=== PATIENT | male | born 1930 | race Caucasian/White ===

== ENCOUNTER 2020-02-14 14:18 | Inpatient (IN) | payer OTHER, MEDICARE ==
[2020-02-14] MEDS ORDERED: Docusate Sodium 100 MG Cap PO PRN (16:36)
[2020-02-14] MEDS ORDERED: Ondansetron 4 MG Tab.DIS PO PRN (16:38)
[2020-02-14] MEDS: Finasteride 5 MG Tab PO SCH (19:51)
[2020-02-14] MEDS: Brimonidine 0.2% Ophth Soln 5 ML Bottle EYEBOTH SCH (19:51)
[2020-02-14] MEDS: Acetaminophen 325 MG Tab PO PRN (19:51)
[2020-02-14] MEDS: Latanoprost 0.005% Ophth Soln 2.5 ML Bottle EYEBOTH SCH (19:52)
[2020-02-15] MEDS: Albuterol/Ipratropium 3.0-0.5 MG/3 ML Neb Soln INH SCH ×4 (00:09→23:10)
[2020-02-15] MEDS: Colchicine 0.6 MG Tab PO SCH (08:16)
[2020-02-15] MEDS: Digoxin 250 MCG Tab PO SCH (08:16)
[2020-02-15] MEDS: Tamsulosin 0.4 MG Cap.ER PO SCH (08:16)
[2020-02-15] MEDS: Amiodarone 200 MG Tab PO SCH (08:16)
[2020-02-15] MEDS: Metoprolol Succinate 25 MG Tab.ER PO SCH (08:16)
[2020-02-15] MEDS: Furosemide 20 MG Tab PO SCH (08:16)
[2020-02-15] MEDS: Brimonidine 0.2% Ophth Soln 5 ML Bottle EYEBOTH SCH ×3 (08:17→20:15)
[2020-02-15] MEDS: Polyethylene Glycol 3350 Powder 17 GM Packet PO SCH (08:18)
--- NOTE | 2020-02-15 10:20 | HP ---
CHIEF COMPLAINT: 1. Weakness. 2. Deconditioning. HISTORY OF PRESENT ILLNESS: The patient is a pleasant 89-year-old male who is admitted to the swing bed unit at [facility] for weakness and deconditioning. [facility] and his PCP is Dr. Nikky Mondragon at the [facility] in [place], [place]. INTERVAL HISTORY: The patient was seen in an emergency room on 12/13/2019, at the [facility] in [place] for swelling of the right wrist. The patient was diagnosed with septic arthritis of the right wrist and hand, and therefore underwent an I and D by Orthopedics on 12/14/2019. The patient was started on IV antibiotics and discharged to a transitional care unit on 12/18/2019. The patient seemed to do well at the transitional care unit. The patient did not have any issues with the right wrist/hand. On 01/12/2020, the patient again presented to the emergency room for shortness of breath, fevers, and chills. The patient was found to be hypotensive and therefore was started on Levophed. The patient did require IV fluids and IV antibiotics and was admitted to the intensive care unit. The patient did remain hemodynamically stable. The patient had developed an acute onset of shortness of breath and altered mental status. The patient was placed on IV Levaquin and IV Zosyn. The patient had started on a BiPAP mask and was able to be transitioned to a venturi mask. Again, the patient was admitted to the ICU for management of septic shock requiring vasopressor support. The patient was able to be discharged from the hospital again on 01/27/2020 to a local fdc. The patient had recovered well while in the fdc, but remained significantly deconditioned. The decision was made by family to have the patient brought back to [place] for rehab in a local fdc in [place], [place]. However, the fdc has required the patient to be quarantined for 14 days prior to the admission. PAST MEDICAL HISTORY: 1. Gout. 2. Septic arthritis of the right wrist/hand. 3. Essential hypertension. 4. BPH. 5. Muscle wasting and atrophy. 6. Abnormality of gait and mobility. 7. Lack of coordination. 8. Dysphagia, oropharyngeal phase. SURGICAL HISTORY: I and D of right hand/wrist, 12/14/2019. FAMILY HISTORY: Noncontributory. SOCIAL HISTORY: The patient does not smoke cigarettes. The patient is currently . The patient is retired. The patient does not use alcohol. MEDICATIONS: 1. Acetaminophen 650 mg 1 tablet p.o. every 4 hours as needed. 2. Albuterol/ipratropium via inhalation every 8 hours. 3. Amiodarone 200 mg 1 tablet p.o. daily. 4. Alphagan 1 drop to both eyes 3 times daily. 5. Colchicine 0.6 mg 1 tablet p.o. daily. 6. Digoxin 250 mcg 1 tablet p.o. daily. 7. Docusate sodium 100 mg p.o. daily as needed. 8. Finasteride 5 mg 1 tablet p.o. daily at bedtime. 9. Furosemide 20 mg 1 tablet p.o. daily. 10.Latanoprost 1 drop to both eyes at bedtime. 11.Metoprolol 25 mg 1 tablet p.o. daily. 12.Zofran 4 mg ODT every 6 hours as needed. 13.MiraLax 17 g p.o. daily. 14.Tamsulosin 0.4 mg 1 tablet p.o. daily. LABORATORY STUDIES: None. IMAGING STUDIES: None. IMMUNIZATION STATUS: Up to date. REVIEW OF SYSTEMS: Constitutional: Negative. Respiratory: Negative. Cardiovascular: Negative. Abdomen: Negative. Skin: Negative. Neurological: Negative. PHYSICAL EXAMINATION: General: The patient is severely hard of hearing. The patient is legally blind, however, he can see shapes and objects. The patient is cooperative. The patient does not appear to be in any acute distress. Skin: Warm, dry, and intact. Respiratory: No acute respiratory distress. Lungs: Clear to auscultation. Cardiovascular: Regular rate and rhythm. No murmur (the patient does have a history of atrial fibrillation). GI: Abdomen is soft, nontender. Bowel sounds are active x4. ASSESSMENT: 1. Weakness. 2. Deconditioning. 3. Septic arthritis of the right wrist/hand. 4. Essential hypertension. 5. Gout. 6. Benign prostatic hypertrophy. 7. Dysphagia. PLAN: The patient will be admitted to the swing bed unit at [facility] for a 14-day quarantine prior to being discharged to [facility] in [place], [place]. In speaking with the via telephone and the patient, the patient wishes to remain a full code. The patient would be transferred to a higher level of care should the need arise. We will have the patient be seen by Physical and Occupational Therapies respectively. The patient's diet will be a mechanical soft with thickened liquids and close supervision during feedings. Continue the same home medications without any changes. Dr. Freda Nguyen will assume care of this patient tomorrow. TB: 02/15/2020 09:12:57 MODL: 02/15/2020 10:14:34 /[id number] MTDD
[2020-02-15] MEDS: Acetaminophen 325 MG Tab PO PRN (20:15)
[2020-02-15] MEDS: Finasteride 5 MG Tab PO SCH (20:15)
[2020-02-15] MEDS: Latanoprost 0.005% Ophth Soln 2.5 ML Bottle EYEBOTH SCH (20:15)
[2020-02-16] MEDS: Albuterol/Ipratropium 3.0-0.5 MG/3 ML Neb Soln INH SCH (07:41)
[2020-02-16] MEDS: Tamsulosin 0.4 MG Cap.ER PO SCH (08:11)
[2020-02-16] MEDS: Colchicine 0.6 MG Tab PO SCH (08:11)
[2020-02-16] MEDS: Amiodarone 200 MG Tab PO SCH (08:11)
[2020-02-16] MEDS: Digoxin 250 MCG Tab PO SCH (08:11)
[2020-02-16] MEDS: Furosemide 20 MG Tab PO SCH (08:11)
[2020-02-16] MEDS: Metoprolol Succinate 25 MG Tab.ER PO SCH (08:11)
[2020-02-16] MEDS: Brimonidine 0.2% Ophth Soln 5 ML Bottle EYEBOTH SCH ×3 (08:13→19:59)
[2020-02-16] MEDS: Polyethylene Glycol 3350 Powder 17 GM Packet PO SCH (08:14)
[2020-02-16] MEDS ORDERED: Albuterol/Ipratropium 3.0-0.5 MG/3 ML Neb Soln INH PRN (10:41)
--- NOTE | 2020-02-16 11:48 | PN ---
Progress Note for LEONARDO WHITFIELD Date: 02/16/2020 Room #: VM.202 SUBJECTIVE: An 89-year-old seen today on swing bed rounds. The patient was admitted over the weekend from [facility] after a prolonged stay there for first septic arthritis of the wrist, then later an admit for Pseudomonas extended-spectrum beta-lactamases pneumonia and bacteremia and then also Rowan, completing courses of micafungin and meropenem. He was not intubated, but required pressors and BiPAP. The patient has a complicated medical history of thrombocytopenia and splenectomy. His last platelet count down there was 56. He received multiple blood transfusions in the hospital. He also has gout and is on the colchicine and does not have any new joint pains today. He states his breathing has been good. He is not coughing. He does not carry a history of chronic obstructive pulmonary disease, but is on nebulizers scheduled 3 times a day. The patient is also on Lasix for diastolic heart failure, Flomax for BPH. The patient went into atrial fibrillation with rapid ventricular response during his ICU stay, but seems to be back in a sinus rhythm now. He is not on anticoagulation due to his history of bleeding but is on metoprolol, digoxin, and amiodarone for rate control. He otherwise states things are going okay. Nurse reported that he somehow got himself into a chair or maybe there was some assistance in the room because he is very weak, needing 2 to 3 people to assist him as he is quite tall. He is also reported to have mild dementia, but admitting provider over the weekend did feel that he was quite sharp. He also spoke with his . He is also little hard to hearing. He is on a mechanical soft and thickened liquid diet. 's name is Jacqui. OBJECTIVE: Vital Signs: His weight is 72.3 kg, pulse 90, blood pressure 110/73, temperature 97.6, respiratory rate 18, O2 of 97% on room air. General: He is in no acute distress. Heart: Regular rate and rhythm. S1 and S2 without murmur. Lungs: Lung sounds are clear to auscultation bilaterally without crackles or wheezes. Extremities: Warm and dry. No edema. Mental Status: He is alert. He is orientated. He is aware he is in [place]. ASSESSMENT AND PLAN: 1. Weakness and deconditioning related to a prolonged hospital stay for healthcare-associated pneumonia. He has completed antibiotics. At this point, I discussed with Respiratory Therapy. We will change his nebulizers to as needed. 2. Septic arthritis of the right hand and wrist. This has completely resolved. 3. Gout. We will continue his home medications. 4. Essential hypertension. 5. BPH. 6. Dysphagia. We will get a Speech consult. 7. Atrial fibrillation. He appears to be back in sinus now. 8. Thrombocytopenia. We will check some lab work tomorrow. 9. He is on no deep vein thrombosis prophylaxis with heparin due to the thrombocytopenia. He had injections remotely at the [facility] for that. We will get him on some JESIKA stockings. Otherwise, the patient agrees to continue with cares here. We will provide him with weekly visits and we will update his as needed. MKA: 02/16/2020 10:45:52 MODL: 02/16/2020 11:39:28 /[id number]
[2020-02-16] MEDS: Finasteride 5 MG Tab PO SCH (19:59)
[2020-02-16] MEDS: Latanoprost 0.005% Ophth Soln 2.5 ML Bottle EYEBOTH SCH (19:59)
[2020-02-17 07:33] LABS: CHLORIDE,CL 106 mmol/L (98-107); SODIUM,NA 142 mmol/L (136-145)
[2020-02-17 07:35] LABS: ANION GAP 10.9 mmol/L (10-20)
[2020-02-17] MEDS ORDERED: Furosemide 20 MG Tab PO PRN (07:52)
[2020-02-17] MEDS: Colchicine 0.6 MG Tab PO SCH (09:49)
[2020-02-17] MEDS: Digoxin 250 MCG Tab PO SCH (09:49)
[2020-02-17] MEDS: Amiodarone 200 MG Tab PO SCH (09:51)
[2020-02-17] MEDS: Polyethylene Glycol 3350 Powder 17 GM Packet PO SCH (09:51)
[2020-02-17] MEDS: Metoprolol Succinate 25 MG Tab.ER PO SCH (09:52)
[2020-02-17] MEDS: Brimonidine 0.2% Ophth Soln 5 ML Bottle EYEBOTH SCH ×3 (09:53→19:30)
[2020-02-17] MEDS ORDERED: Sodium Chloride 0.9% 10 ML Syringe FLUSH PRN (14:43)
[2020-02-17] MEDS ORDERED: Sodium Chloride 0.9% 500 ML IV ONE (14:43)
[2020-02-17] MEDS ORDERED: Sodium Chloride 0.9% 1,000 ML IV ONE (15:00)
--- NOTE | 2020-02-17 17:04 | PN ---
Progress Note for LEONARDO WHITFIELD Date: 02/17/2020 Room #: VM.202 This is an 89-year-old on swing bed for recovery after a long-term admission in [place] this winter for septic arthritis, then hospital-acquired pneumonia. He had been recovering at the alf skilled facility there. Since coming here, last evening, he had some lower blood pressures in the 88 systolic range, but was completely asymptomatic. This morning, I changed his Lasix to p.r.n., changed his Flomax to evening dosing. However, nursing reported a 67/42 blood pressure and then on recheck 52/38 with him sitting in the chair, all other vitals fine, and no symptoms. Decision was made to give him a 500 mL bolus of normal saline. Repeat blood pressure was 94/62. The patient did get his metoprolol this morning due to his history of atrial fibrillation. Otherwise, he states he is feeling fine. He is not lightheaded or dizzy. He is just resting in the chair. Yesterday, when he had the low blood pressure, nursing reported he was tired. Today, he had actually worked with PT prior to this occurring. PHYSICAL EXAMINATION: Vital Signs: Blood pressure 94/62, temp 98.5, pulse 78, morning blood pressure 104/65, weight 72.8 kg, O2 is 92% on room air, respiratory rate 20. General: He is in no acute distress. Heart: Regular rate and rhythm without murmur. Lungs: Lung sounds are clear to auscultation bilaterally without crackles or wheezes. Extremities: Warm and dry with no edema. ASSESSMENT: 1. Hypotension due to medications. We will go ahead and keep the Lasix at p.r.n., Flomax in the evening with holding parameters lopressor down to 12.5 and see how he does. 2. Weakness and deconditioning. After prolonged hospital stay for healthcare- associated pneumonia, he is working with therapies. 3. Gout. No symptoms. 4. Benign prostatic hypertrophy. He will continue his home medications unless his blood pressure is too low to do so. If he has any issues, we will do bladder scanning. 5. Dysphagia. Speech has been consulted. 6. Paroxysmal atrial fibrillation. He appears to be in sinus. He is not on anticoagulation due to bleeding. 7. Thrombocytopenia. Platelets checked today, they were in the 50s which is his normal range. 8. For deep vein thrombosis prophylaxis, he is on the JESIKA stockings. PLAN: At this point, the patient will continue swing bed cares. We will continue close monitoring every 4 hours while awake of his blood pressure. We will repeat lab work in 1 week. He also had an abnormal TSH of 8 and he is on amiodarone, so we will follow up closely by doing a T4. MKA: 02/17/2020 16:36:28 MODL: 02/17/2020 16:57:49 /[id number]
[2020-02-17] MEDS: Tamsulosin 0.4 MG Cap.ER PO SCH (19:30)
[2020-02-17] MEDS: Latanoprost 0.005% Ophth Soln 2.5 ML Bottle EYEBOTH SCH (19:30)
[2020-02-17] MEDS: Acetaminophen 325 MG Tab PO PRN (19:30)
[2020-02-17] MEDS: Finasteride 5 MG Tab PO SCH (19:30)
[2020-02-18] MEDS: Amiodarone 200 MG Tab PO SCH (08:22)
[2020-02-18] MEDS: Colchicine 0.6 MG Tab PO SCH (08:22)
[2020-02-18] MEDS: Brimonidine 0.2% Ophth Soln 5 ML Bottle EYEBOTH SCH ×3 (08:22→19:24)
[2020-02-18] MEDS: Metoprolol Succinate 25 MG Tab.ER PO SCH (08:23)
[2020-02-18] MEDS: Polyethylene Glycol 3350 Powder 17 GM Packet PO SCH (08:24)
[2020-02-18] MEDS: Digoxin 250 MCG Tab PO SCH (08:24)
[2020-02-18] MEDS: Finasteride 5 MG Tab PO SCH (19:24)
[2020-02-18] MEDS: Tamsulosin 0.4 MG Cap.ER PO SCH (19:24)
[2020-02-18] MEDS: Acetaminophen 325 MG Tab PO PRN (19:24)
[2020-02-18] MEDS: Latanoprost 0.005% Ophth Soln 2.5 ML Bottle EYEBOTH SCH (19:24)
[2020-02-19] MEDS: Metoprolol Succinate 25 MG Tab.ER PO SCH (08:26)
[2020-02-19] MEDS: Colchicine 0.6 MG Tab PO SCH (08:26)
[2020-02-19] MEDS ORDERED: Polyethylene Glycol 3350 Powder 17 GM Packet PO PRN (08:27)
[2020-02-19] MEDS: Amiodarone 200 MG Tab PO SCH (08:34)
[2020-02-19] MEDS: Digoxin 250 MCG Tab PO SCH (08:34)
[2020-02-19] MEDS: Brimonidine 0.2% Ophth Soln 5 ML Bottle EYEBOTH SCH ×3 (08:35→19:57)
[2020-02-19] MEDS: Polyethylene Glycol 3350 Powder 17 GM Packet PO SCH (08:36)
[2020-02-19] MEDS: Acetaminophen 325 MG Tab PO PRN (19:57)
[2020-02-19] MEDS: Latanoprost 0.005% Ophth Soln 2.5 ML Bottle EYEBOTH SCH (19:57)
[2020-02-19] MEDS: Finasteride 5 MG Tab PO SCH (19:57)
[2020-02-19] MEDS: Tamsulosin 0.4 MG Cap.ER PO SCH (19:58)
[2020-02-20] MEDS: Digoxin 250 MCG Tab PO SCH (07:40)
[2020-02-20] MEDS: Metoprolol Succinate 25 MG Tab.ER PO SCH (07:40)
[2020-02-20] MEDS: Brimonidine 0.2% Ophth Soln 5 ML Bottle EYEBOTH SCH ×3 (07:41→19:30)
[2020-02-20] MEDS: Colchicine 0.6 MG Tab PO SCH (07:41)
[2020-02-20] MEDS: Amiodarone 200 MG Tab PO SCH (07:41)
[2020-02-20] MEDS: Tamsulosin 0.4 MG Cap.ER PO SCH (19:26)
[2020-02-20] MEDS: Finasteride 5 MG Tab PO SCH (19:26)
[2020-02-20] MEDS: Latanoprost 0.005% Ophth Soln 2.5 ML Bottle EYEBOTH SCH (19:30)
[2020-02-21] MEDS: Metoprolol Succinate 25 MG Tab.ER PO SCH (07:34)
[2020-02-21] MEDS: Digoxin 250 MCG Tab PO SCH (07:34)
[2020-02-21] MEDS: Amiodarone 200 MG Tab PO SCH (07:34)
[2020-02-21] MEDS: Brimonidine 0.2% Ophth Soln 5 ML Bottle EYEBOTH SCH ×3 (07:34→19:30)
[2020-02-21] MEDS: Colchicine 0.6 MG Tab PO SCH (07:34)
[2020-02-21] MEDS: Finasteride 5 MG Tab PO SCH (19:30)
[2020-02-21] MEDS: Latanoprost 0.005% Ophth Soln 2.5 ML Bottle EYEBOTH SCH (19:30)
[2020-02-21] MEDS: Tamsulosin 0.4 MG Cap.ER PO SCH (19:30)
[2020-02-22] MEDS: Digoxin 250 MCG Tab PO SCH (09:14)
[2020-02-22] MEDS: Colchicine 0.6 MG Tab PO SCH (09:14)
[2020-02-22] MEDS: Amiodarone 200 MG Tab PO SCH (09:14)
[2020-02-22] MEDS: Metoprolol Succinate 25 MG Tab.ER PO SCH (09:15)
[2020-02-22] MEDS: Brimonidine 0.2% Ophth Soln 5 ML Bottle EYEBOTH SCH ×3 (09:16→19:24)
[2020-02-22] MEDS: Tamsulosin 0.4 MG Cap.ER PO SCH (19:24)
[2020-02-22] MEDS: Finasteride 5 MG Tab PO SCH (19:24)
[2020-02-22] MEDS: Latanoprost 0.005% Ophth Soln 2.5 ML Bottle EYEBOTH SCH (19:24)
[2020-02-23] MEDS: Amiodarone 200 MG Tab PO SCH (07:48)
[2020-02-23] MEDS: Digoxin 250 MCG Tab PO SCH (07:48)
[2020-02-23] MEDS: Colchicine 0.6 MG Tab PO SCH (07:48)
[2020-02-23] MEDS: Metoprolol Succinate 25 MG Tab.ER PO SCH (07:48)
[2020-02-23] MEDS: Brimonidine 0.2% Ophth Soln 5 ML Bottle EYEBOTH SCH ×3 (07:50→19:08)
[2020-02-23] MEDS: Acetaminophen 325 MG Tab PO PRN (19:08)
[2020-02-23] MEDS: Tamsulosin 0.4 MG Cap.ER PO SCH (19:08)
[2020-02-23] MEDS: Latanoprost 0.005% Ophth Soln 2.5 ML Bottle EYEBOTH SCH (19:08)
[2020-02-23] MEDS: Finasteride 5 MG Tab PO SCH (19:08)
[2020-02-24 07:10] LABS: CHLORIDE,CL 108 mmol/L (98-107); SODIUM,NA 143 mmol/L (136-145)
[2020-02-24 07:11] LABS: ANION GAP 12.9 mmol/L (10-20)
[2020-02-24] MEDS: Digoxin 250 MCG Tab PO SCH (08:22)
[2020-02-24] MEDS: Metoprolol Succinate 25 MG Tab.ER PO SCH (08:22)
[2020-02-24] MEDS: Amiodarone 200 MG Tab PO SCH (08:22)
[2020-02-24] MEDS: Brimonidine 0.2% Ophth Soln 5 ML Bottle EYEBOTH SCH ×3 (08:23→19:20)
[2020-02-24] MEDS: Colchicine 0.6 MG Tab PO SCH (08:23)
--- NOTE | 2020-02-24 10:35 | PN ---
Progress Note for LEONARDO WHITFIELD Date: 02/24/2020 Room #: VM.202 SUBJECTIVE: This is an 89-year-old on swing bed, recovering from acute stays down in [place] for pneumonia and septic arthritis of the wrist. The patient has been doing really excellent with therapy. He is making good progress. He walked 100 feet yesterday. He is denying any pain or trouble breathing this morning. He has been off Lasix and has not required any p.r.n. doses. His blood pressures have been excellent. He has been afebrile. He is eating 100% of most meals. OBJECTIVE: Vital Signs: His weight 72.8 kg, pulse 70, blood pressure 119/65, respiratory rate 19, and O2 of 98% on room air. General: He is in no acute distress. Heart: Regular rate and rhythm. Lungs: Lung sounds are clear to auscultation bilaterally without crackles or wheezes. Abdomen: Has positive bowel sounds. Soft, nontender. Extremities: Warm and dry. No edema. Mental Status: He is alert. He is hard to hearing. He is able to answer questions appropriately yes or no. LABORATORY DATA: Laboratory work did show white count 5.9, hemoglobin 10.5, and platelets 61. Sodium 143, potassium 3.9, chloride 108, bicarbonate 26, BUN 14, and creatinine 1.1. ALT, AST all within normal range. His albumin was 2.8. His T4 did come back actually at 6.9 within range. The TSH was elevated to 8. He is on amiodarone. ASSESSMENT AND PLAN: 1. Deconditioning after prolonged acute hospital stay in the ICU requiring BiPAP and pressors for pneumonia. Seems to be doing quite well now with therapies. The tentative plan is for him to go to a chcf in [place] on Sunday. Distillery Manager is working on that. Other option would be to stay here as he is getting stronger and it might only be another week to 10 days before he could return home. 2. Hypotension, due to medications. This has resolved. 3. Essential hypertension. He is doing well on the Lasix p.r.n. and the reduced dose of Toprol down to 12.5. 4. Atrial fibrillation. He is in a sinus rhythm. He is on digoxin, amiodarone, and metoprolol. He has not had any bradycardia. If he does, I would first cut back on digoxin. 5. BPH. He is on home medications, that is going well. 6. History of gout. No symptoms. 7. Dysphagia. He is working with Speech. 8. Thrombocytopenia, chronic. No bleeding problems, platelets mildly increased today. 9. Deep vein thrombosis prophylaxis. He has JESIKA stockings ordered. 10. Malnutrition PLAN: At this point, the patient will continue swing bed cares. He can be on routine vital checks. In fact I am going to cut back on his digoxin to 125 daily here and monitor for tachycardia. We will repeat laboratory work in a couple of weeks again or this can be done over in [place] if he transitions there. He will need to have some close monitoring of his thyroid. He will probably need to follow up with Cardiology for a decision on the amiodarone. He is not anticoagulated due to bleeding problems. MKA: 02/24/2020 09:57:22 MODL: 02/24/2020 10:25:12 /[id number] LOUIS
[2020-02-24] MEDS: Latanoprost 0.005% Ophth Soln 2.5 ML Bottle EYEBOTH SCH (19:20)
[2020-02-24] MEDS: Acetaminophen 325 MG Tab PO PRN (19:21)
[2020-02-24] MEDS: Tamsulosin 0.4 MG Cap.ER PO SCH (19:21)
[2020-02-24] MEDS: Finasteride 5 MG Tab PO SCH (19:21)
[2020-02-25] MEDS: Metoprolol Succinate 25 MG Tab.ER PO SCH (08:01)
[2020-02-25] MEDS: Amiodarone 200 MG Tab PO SCH (08:01)
[2020-02-25] MEDS: Colchicine 0.6 MG Tab PO SCH (08:01)
[2020-02-25] MEDS: Brimonidine 0.2% Ophth Soln 5 ML Bottle EYEBOTH SCH ×3 (08:01→19:29)
[2020-02-25] MEDS: Digoxin 125 MCG Tab PO SCH (08:01)
[2020-02-25] MEDS: Finasteride 5 MG Tab PO SCH (19:29)
[2020-02-25] MEDS: Tamsulosin 0.4 MG Cap.ER PO SCH (19:29)
[2020-02-25] MEDS: Latanoprost 0.005% Ophth Soln 2.5 ML Bottle EYEBOTH SCH (19:29)
[2020-02-26] MEDS: Metoprolol Succinate 25 MG Tab.ER PO SCH (08:14)
[2020-02-26] MEDS: Colchicine 0.6 MG Tab PO SCH (08:14)
[2020-02-26] MEDS: Brimonidine 0.2% Ophth Soln 5 ML Bottle EYEBOTH SCH ×3 (08:15→21:52)
[2020-02-26] MEDS: Amiodarone 200 MG Tab PO SCH (08:15)
[2020-02-26] MEDS: Digoxin 125 MCG Tab PO SCH (08:15)
[2020-02-26] MEDS: Tamsulosin 0.4 MG Cap.ER PO SCH (21:51)
[2020-02-26] MEDS: Latanoprost 0.005% Ophth Soln 2.5 ML Bottle EYEBOTH SCH (21:52)
[2020-02-26] MEDS: Finasteride 5 MG Tab PO SCH (21:52)
--- NOTE | 2020-02-26 22:58 | DISCH ---
PRIMARY DISCHARGE DIAGNOSES: 1. Deconditioning due to an acute stay for pneumonia and septic arthritis in [place]. 2. Atrial fibrillation with rapid ventricular response during his acute illness. He is back in a sinus rhythm. 3. Hypotension due to medications. This resolved with medication adjustments. 4. BPH, on home medications. 5. Essential hypertension, controlled. 6. History of gout. He has not had any symptoms currently. He is on colchicine. 7. Dysphagia, working with Speech. 8. Chronic thrombocytopenia without bleeding problems. His platelets were checked and were 61 here on 02/23. 9. Abnormal TSH at 8.05, but T4 within normal range. The patient is on amiodarone. Will require further followup. 10.Malnutrition. 11.Mild anemia, chronic and stable. His hemoglobin was 10.5 on his last check, MCV 90. 12.Episodes of loose stools. This resolved after changing his laxatives to p.r.n. He never did need a Clostridium difficile test. 13.Deep vein thrombosis prophylaxis. He was treated with JESIKA stockings. REASON FOR ADMISSION: On the date of admission, this 89-year-old male, who had been recovering at a skilled facility in [place], was transferred up to [place] by plane, admitted to our facility for further therapies. It was reported that he was quite weak. He needed the assistance of two to ambulate. When he arrived at our facility, he worked well with therapies. He did good. He was walking up to 100 feet. He had issues only with low blood pressure here after a few days. In fact, one reading was down to 60/42. Therefore, I gave him 500 mL of fluid, changed his Lasix to p.r.n., which he never required again, and decreased his Toprol down to 12.5 mg daily. He only had mild tachycardia when he was hypotensive, but in the last several days, his pulses have all been in the 60s. His digoxin was already decreased from 250 to 125 and will be stopped on discharge. He had been started on amiodarone while in [place]. They had reported some history of atrial fibrillation previously for him in his records. However, he had been unable to take anticoagulation due to bleeding problems. The patient remains on amiodarone 200 mg daily. His liver enzymes were normal here, but his TSH was elevated to 8, however, T4 normal, and he had no signs or symptoms of hypothyroidism. I also discontinued his scheduled nebulizers when he arrived. He did not require any further nebulizers. He was voiding okay. His pneumonia was reported to be Pseudomonas extended spectrum beta-lactamase pneumonia while he was in [place] along with Rowan and bacteremia. He was not intubated, but did require BiPAP there. He had no respiratory symptoms here. No fevers. COVID test done for the [facility] admit and it was negative. He did receive multiple blood transfusions while he was in [place]. The patient was reported to have chronic diastolic heart failure with a normal EF; however, and he had no fluid issues when I stopped his Lasix and changed it to p.r.n. here. DISCHARGE PLANS AND INSTRUCTIONS: The patient is going to the correction in [place]. He [facility] with [facility] or [facility] 30 days. He will stop his digoxin on discharge. His metoprolol will be at 12.5 mg daily on discharge. Amiodarone duration and dosing should be further decided by his primary care versus Cardiology. He will continue with PT, OT, and Speech at the correction. He worked with Speech here. They recommended he alternate his soft diet with thin liquids. He should have lab work; a BMP, CBC, and TSH reflex in about 2 weeks' time. PHYSICAL EXAMINATION: Discharging Vitals: At the time of my last exam with him with a temperature 97.9. His weight 72.0 kg. He was eating 100% of his meals. His pulse 68, blood pressure 104/56, respiratory rate 20, O2 of 95% on room air. General: He was in no acute distress. Heart: Regular rate and rhythm. S1, S2, without murmur. Lungs: Sounds were clear to auscultation bilaterally without crackles or wheezes. Extremities: Warm and dry. No edema. Mental Status: He is alert. He is hard of hearing. Greater 30 minutes spent on this discharge process. JULIANAA: 02/26/2020 15:00:10 MODL: 02/26/2020 22:53:23 /[id number] MTDDes
[2020-02-27 07:02] VITALS: BP 120/70; PULSE 66
[2020-02-27] MEDS: Metoprolol Succinate 25 MG Tab.ER PO SCH (08:43)
[2020-02-27] MEDS: Amiodarone 200 MG Tab PO SCH (08:43)
[2020-02-27] MEDS: Digoxin 125 MCG Tab PO SCH (08:44)
[2020-02-27] MEDS: Colchicine 0.6 MG Tab PO SCH (08:44)
[2020-02-27] MEDS: Brimonidine 0.2% Ophth Soln 5 ML Bottle EYEBOTH SCH (08:45)
== END 2020-02-27 10:30 | DRG 947 ==
LOC: VM.MS 19:02
PROVIDERS: ADMIT Nurse Practitioner Family; ATTEND Internal Medicine
DX: R53.1 Weakness (principal); J18.9 Pneumonia, unspecified organism; M00.9 Pyogenic arthritis, unspecified; E46 Unspecified protein-calorie malnutrition; M10.9 Gout, unspecified; N40.0 Benign prostatic hyperplasia without lower urinary tract symptoms; I95.2 Hypotension due to drugs; T50.905A Adverse effect of unspecified drugs, medicaments and biological substances, initial encounter; I10 Essential (primary) hypertension; I48.91 Unspecified atrial fibrillation; D69.6 Thrombocytopenia, unspecified; I48.0 Paroxysmal atrial fibrillation; R13.10 Dysphagia, unspecified; D64.9 Anemia, unspecified; Z79.899 Other long term (current) drug therapy
CPT/HCPCS: 36415; 80048; 80053; 84436; 84443; 85025; 92526-GN; 92610-GN; 94640; 97110-GP; 97116-GP; 97161-GP; 97165-GO; 97535-GO; A9270-GY; J7030; J7620-GY; U0002